=== PATIENT | female | born 1990 | race Caucasian/White ===

== ENCOUNTER 2017-08-17 18:04 | Emergency (ER) | payer OTHER ==
[~2017-08-17] VITALS: Ht 160 cm; Wt 68.0 kg
[~2017-08-17 18:04] MED LIST: IRON18 MG PO; LOMOTIL TABLET1 EACH PO; POTASSIUM CHLO20 ME1 PO
[2017-08-17] MEDS ORDERED: PAXIL20 MG PO (18:34)
== END 2017-08-17 20:47 | disposition home or self-care (01) ==
LOC: ED 18:04
DX: R07.89 Other chest pain (principal); Z87.891 Personal history of nicotine dependence; Z79.899 Other long term (current) drug therapy
CPT/HCPCS: 71046; 99283

== ENCOUNTER 2019-02-10 18:34 | Emergency (ER) | payer BC ==
[~2019-02-10] VITALS: Ht 160 cm; Wt 67.1 kg
[~2019-02-10 18:34] MED LIST changes: +PAXIL20 MG PO
[2019-02-10] MEDS ORDERED: PENICILLIN V P500 MG PO (19:41)
[2019-02-10] MEDS ORDERED: HYDROCODONE-IB1 EACH PO (19:41)
[2019-02-10] MEDS ORDERED: CLINDAMYCIN HC300 MG PO (21:11)
[2019-02-10] MEDS ORDERED: PERCOCET 5-3251 EACH PO (21:11)
== END 2019-02-10 21:26 | disposition home or self-care (01) ==
LOC: ED 18:34
DX: K08.89 Other specified disorders of teeth and supporting structures (principal); Z87.891 Personal history of nicotine dependence; Z79.899 Other long term (current) drug therapy
CPT/HCPCS: 85025; 96372; 99282; J1170

== ENCOUNTER 2020-01-19 17:58 | Emergency (ER) | payer OTHER, BC ==
[~2020-01-19] VITALS: Ht 160 cm; Wt 72.6 kg
[~2020-01-19 17:58] MED LIST changes: +CLINDAMYCIN HC300 MG PO; +HYDROCODONE-IB1 EACH PO; +PENICILLIN V P500 MG PO; +PERCOCET 5-3251 EACH PO
== END 2020-01-19 21:18 | disposition home or self-care (01) ==
LOC: ED 17:58
DX: S29.012A Strain of muscle and tendon of back wall of thorax, initial encounter (principal); S76.012A Strain of muscle, fascia and tendon of left hip, initial encounter; Z87.891 Personal history of nicotine dependence; V89.2XXA Person injured in unspecified motor-vehicle accident, traffic, initial encounter
CPT/HCPCS: 71045; 72128; 73502; 84703; 99284-25

== ENCOUNTER 2022-02-23 20:43 | Emergency (ER) | payer OTHER ==
[~2022-02-23] VITALS: Ht 160 cm; Wt 72.6 kg
[2022-02-23] MEDS ORDERED: SERTRALINE HCL100 MG (20:55)
[2022-02-23] MEDS ORDERED: CRUTCHES XX (21:28)
== END 2022-02-23 22:06 | disposition home or self-care (01) ==
LOC: ED 20:43
DX: S93.401A Sprain of unspecified ligament of right ankle, initial encounter (principal); X50.9XXA Other and unspecified overexertion or strenuous movements or postures, initial encounter; Y99.0 Civilian activity done for income or pay; Z87.891 Personal history of nicotine dependence; Z79.899 Other long term (current) drug therapy
CPT/HCPCS: 73610; 99283-25

== ENCOUNTER 2024-11-14 17:24 | Inpatient (IN) | payer OTHER ==
[~2024-11-14] VITALS: Ht 160 cm; Wt 101.2 kg
[~2024-11-14 17:24] MED LIST changes: +CRUTCHES XX; +SERTRALINE HCL100 MG
[2024-11-18] MEDS ORDERED: LACTATED RINGER'S 2,000 ML IV PRN (15:15)
[2024-11-18] MEDS ORDERED: LACTATED RINGER'S 1,000 ML IV SCH (15:15)
[2024-11-19 05:26] LABS: AMPHETAMINES, URINE NEGATIVE (NEGATIVE); BARBITURATES, URINE NEGATIVE (NEGATIVE); BENZODIAZEPINE, URINE NEGATIVE (NEGATIVE); BUPRENORPHINE, URINE NEGATIVE (NEGATIVE); CANNABINOID, URINE NEGATIVE (NEGATIVE); COCAINE, URINE NEGATIVE (NEGATIVE); ECSTASY, URINE NEGATIVE (NEGATIVE); FENTANYL, URINE NEGATIVE (NEGATIVE); METHADONE, URINE NEGATIVE (NEGATIVE); OPIATES, URINE NEGATIVE (NEGATIVE); OXYCODONE, URINE NEGATIVE (NEGATIVE); PHENCYCLIDINE, URINE NEGATIVE (NEGATIVE)
[2024-11-19 05:39] LABS: HEMATOCRIT 32.6 % (34.1-44.9); HEMOGLOBIN 10.7 g/dL (11.2-15.7); MCHC 32.8 g/dL (32.2-35.5); MCV 82.3 fL (79.4-94.8); RBC 3.96 M/uL (3.93-5.22)
[2024-11-19 06:13] VITALS: BP 149/92
[2024-11-19 06:16] LABS: ABO O; ANTIBODY SCREEN NEGATIVE; RH POSITIVE
[2024-11-19] MEDS ORDERED: CEFAZOLIN SODIUM 2 GM/20 ML SYR IV SCH (07:00)
[2024-11-19] MEDS ORDERED: SOD+POT BICARB/CITRIC ACID 2 EA TABLET.EFF PO SCH (07:00)
[2024-11-19] MEDS ORDERED: MORPHINE SULFATE 1 MG/ML VIAL ONE (07:12)
[2024-11-19] MEDS ORDERED: fentaNYL citrate 100 MCG/2 ML VIAL ONE (07:12)
[2024-11-19] MEDS ORDERED: BUPIVACAINE 0.75% IN DEXTROSE 2 ML AMP ONE (07:12)
[2024-11-19] MEDS ORDERED: OXYTOCIN 10 UNITS/ML VIAL ONE (07:12)
[2024-11-19] MEDS ORDERED: ondansetron HCL 4 MG/2 ML VIAL ONE (07:12)
[2024-11-19] MEDS ORDERED: LIDOCAINE HCL 2% 5 ML SDV ONE (07:18)
[2024-11-19] MEDS ORDERED: PHENYLEPHRINE HCL 10 MG/ML VIAL ONE (07:48)
[2024-11-19 07:54] LABS: ALBUMIN 2.2 g/dL (3.4-5.0); ALBUMIN/GLOBULIN RATIO 0.49 (1.1-2.4); BILIRUBIN, TOTAL 0.2 mg/dL (0.2-1.0); BUN/CREATININE RATIO 13.15 (6.0-28.6); CALCIUM 9.1 mg/dL (8.5-10.1); CREATININE, SERUM 0.76 mg/dL (0.55-1.02); PROTEIN, TOTAL 6.7 g/dL (6.4-8.2)
[2024-11-19 08:05] LABS: CREATININE, RANDOM URINE 195.42 mg/dL (NOT ESTABLISHED); PROTEIN/CREATININE RATIO 0.5 mg/mg (0.010-0.107)
[2024-11-19] MEDS ORDERED: LACTATED RINGER'S 1,000 ML IV ONE (08:08)
[2024-11-19] MEDS ORDERED: diphenhydrAMINE HCL 50 MG/ML VIAL ONE (08:26)
[2024-11-19] MEDS ORDERED: DEXAMETHASONE SOD PHOS 4 MG/ML VIAL ONE (08:26)
[2024-11-19] MEDS ORDERED: diphenhydrAMINE HCL 50 MG/ML VIAL IV PRN (08:30)
[2024-11-19] MEDS ORDERED: PROCHLORPERAZINE EDISYLATE 10 MG/2 ML VIAL IV PRN ×2 (08:30→09:00)
[2024-11-19] MEDS ORDERED: NALOXONE HCL 0.4 MG SYR IV PRN (08:30)
[2024-11-19] MEDS ORDERED: HYDROmorphone HCL 1 MG/ML SYR IV PRN (08:30)
[2024-11-19] MEDS ORDERED: ondansetron HCL 4 MG/2 ML VIAL IV PRN ×2 (08:30→09:00)
[2024-11-19] MEDS ORDERED: KETOROLAC TROMETHAMINE 30 MG/ML VIAL IV PRN (08:30)
[2024-11-19] MEDS ORDERED: SODIUM CHLORIDE 0.9% 20 ML IV ONE (08:34)
[2024-11-19] MEDS ORDERED: Ropivacaine HCl 0.5% 30 ML VIAL ONE (08:34)
[2024-11-19] MEDS ORDERED: SENNOSIDES/DOCUSATE 1 EA TAB PO SCH (09:00)
[2024-11-19] MEDS ORDERED: bisacodyL 10 MG SUPP PR PRN (09:00)
[2024-11-19] MEDS ORDERED: HYDROCODONE/ACETA 5/325 TAB PO PRN (09:00)
[2024-11-19] MEDS ORDERED: LIDOCAINE 2% VISCOUS 6 ML SYR TOP ONE (09:00)
[2024-11-19] MEDS ORDERED: OXYTOCIN/0.9 % SODIUM CHLORIDE 500 ML IV SCH (09:00)
[2024-11-19] MEDS ORDERED: METOCLOPRAMIDE HCL 10 MG/2 ML SDV IV PRN (09:00)
[2024-11-19] MEDS ORDERED: PROMETHAZINE HCL 25 MG TAB PO PRN (09:00)
[2024-11-19] MEDS ORDERED: PROMETHAZINE HCL 25 MG SUPP PR PRN (09:00)
[2024-11-19] MEDS ORDERED: LACTATED RINGER'S 1,000 ML IV SCH (09:02)
--- NOTE | 2024-11-19 09:13 | NUR ---
11/19/24 0913 Tamera Ruiz 0904-PATIENT ARRIVED TO RECOVERY ROOM 106 AWAKE DENIES PAIN OR NAUSEA. LEFT HAND IV INFUSING WITH LR 20 PITOCIN CDI. RIGHT HAND IV SALINE LOCKED CDI. MOM HOLDING BABY. SR HR 80'S. 0910-SPINAL LEVEL T10. PATIENT FEEDING BOTH BABIES TO BREASTS. FBC RN AT BEDSIDE ASSISTING. KILLIAN CATHETER DRAINING YELLOW URINE. FUNDUS 1 BELOW UMBILICUS LIGHT RUBRA DRAINAGE FIRM.
[2024-11-19 09:32] VITALS: BP 120/58
[2024-11-19 10:09] LABS: HEMATOCRIT 28.3 % (34.1-44.9); HEMOGLOBIN 9.1 g/dL (11.2-15.7); MCH 27.2 PG (25.6-32.2); MCHC 32.2 g/dL (32.2-35.5); MCV 84.7 fL (79.4-94.8); RBC 3.34 M/uL (3.93-5.22)
[2024-11-19 10:44] LABS: INR 0.94 (0.80-1.30); PROTIME 12.2 Sec (11.2-14.2)
[2024-11-19] MEDS ORDERED: SIMETHICONE 80 MG CHEW PO SCH (11:00)
[2024-11-19 13:25] LABS: HEMATOCRIT 30.9 % (34.1-44.9); HEMOGLOBIN 10.1 g/dL (11.2-15.7); MCH 26.9 PG (25.6-32.2); MCHC 32.7 g/dL (32.2-35.5); MCV 82.4 fL (79.4-94.8); RBC 3.75 M/uL (3.93-5.22)
[2024-11-19] MEDS ORDERED: KETOROLAC TROMETHAMINE 30 MG/ML VIAL IV SCH (14:00)
[2024-11-20 05:40] LABS: HEMATOCRIT 24.7 % (34.1-44.9); MCH 26.8 PG (25.6-32.2); MCHC 32.4 g/dL (32.2-35.5); MCV 82.9 fL (79.4-94.8); RBC 2.98 M/uL (3.93-5.22)
--- NOTE | 2024-11-20 06:54 | PR ---
[facility] [address] [facility] [place], [place] [address] Signed PP Progress Notes Datetime Report Generated by LOUIS: 11/20/2024 06:54 SUBJECTIVE: [id number] Pain: Within Normal Limits Nausea/Vomiting: Denies Flatus: Yes Vital Signs: [id number] EXAM: Ongoing Cardiovascular: Normal Respiratory: Normal Abdomen/Uterus: Normal Lochia: Normal Vulva/Perineum: Normal Breasts: Normal CVA Tenderness: Normal Extremities: Normal Incision: Normal Progress: Normal IMPRESSION/PLAN/PROCEDURES: [id number] Impression: Normal Progression Plan: Continue Present Management Procedures: None Progress Notes: No concerns this am. Will D/C cathter. Pt denies CP/SOB. H/H 8/24.7. Minimal lochia. Nursing going well. Signing Physician: Shital Brizuela MD Copies: ~ *Electronically Signed* 11/20/24 0654 SHITAL BRIZUELA MD PATIENT NAME: ZOHREH MCCANN PROGRESS NOTE DATE OF : [birth year] PHYSICIAN: SHITAL BRIZUELA MD RPT #: [id number] REPORT IS CONFIDENTIAL AND NOT TO BE RELEASED WITHOUT AUTHORIZATION
[2024-11-20] MEDS ORDERED: IBUPROFEN 600 MG TAB PO SCH (14:00)
[2024-11-20] MEDS ORDERED: OXYCODONE HCL 5 MG TAB PO PRN (17:15)
[2024-11-20] MEDS ORDERED: ACETAMINOPHEN 325 MG TAB PO PRN ×2 (17:15→21:45)
--- NOTE | 2024-11-21 08:54 | PR ---
[facility] [address] [facility] [place], [place] [address] Signed PP Progress Notes Datetime Report Generated by CPN: 11/21/2024 08:54 SUBJECTIVE: [id number] Pain: Within Normal Limits Nausea/Vomiting: Denies Flatus: Yes Vital Signs: [id number] Vital Signs: Reviewed; Within Normal Limits EXAM: Ongoing Cardiovascular: Normal Respiratory: Normal Abdomen/Uterus: Normal Lochia: Normal Vulva/Perineum: Not Done Breasts: Not Done CVA Tenderness: Not Done Extremities: Normal Incision: Normal Progress: Normal IMPRESSION/PLAN/PROCEDURES: [id number] Impression: Normal Progression Plan: Continue Present Management; Discharge Procedures: None Progress Notes: Recovering well. Ambulating. Nursing. Desires D/C home today. Signing Physician: Shital Brizuela MD Copies: ~ *Electronically Signed* 11/21/24 0854 SHITAL BRIZUELA MD PATIENT NAME: ZOHREH MCCANN PROGRESS NOTE DATE OF : [birth year] PHYSICIAN: SHITAL BRIZUELA MD RPT #: [id number] REPORT IS CONFIDENTIAL AND NOT TO BE RELEASED WITHOUT AUTHORIZATION
--- NOTE | 2024-11-21 09:06 | PR ---
[facility] [address] [facility] [place], [place] [address] Signed PP Progress Notes Datetime Report Generated by CPN: 11/21/2024 09:05 SUBJECTIVE: [id number] Pain: Within Normal Limits Nausea/Vomiting: Denies Flatus: Yes Vital Signs: [id number] Vital Signs: Reviewed; Within Normal Limits EXAM: Ongoing Cardiovascular: Normal Respiratory: Normal Abdomen/Uterus: Normal Lochia: Normal Vulva/Perineum: Not Done Breasts: Not Done CVA Tenderness: Not Done Extremities: Normal Incision: Normal Progress: Not Applicable IMPRESSION/PLAN/PROCEDURES: [id number] Impression: Normal Progression Plan: Continue Present Management Procedures: None Progress Notes: H/H 10.1/30.8. Ambulating. Pain well controlled. Anticipate D/C tomorrow. Signing Physician: Shital Brizuela MD Copies: ~ *Electronically Signed* 11/21/24904 SHITAL BRIZUELA MD PATIENT NAME: ZOHREH MCCANN PROGRESS NOTE DATE OF : [birth year] PHYSICIAN: SHITAL BRIZUELA MD RPT #: [id number] REPORT IS CONFIDENTIAL AND NOT TO BE RELEASED WITHOUT AUTHORIZATION
--- NOTE | 2024-11-22 20:08 | PATH ---
[facility] [address] [place], [place] [address] Signed SPECIMEN(S): A FALLOPIAN TUBES, BILATERAL SPECIMEN(S): B PLACENTA, TWIN SPECIMEN SOURCE: A. FALLOPIAN TUBES, BILATERAL B. PLACENTA, TWIN CLINICAL HISTORY: Twin delivery. Risk reduction for ovarian cancer. FINAL PATHOLOGIC DIAGNOSIS: A. Right and left fallopian tubes, bilateral salpingectomy: - Complete cross-sections of right and left fallopian tubes with fimbriated ends. - Negative for atypia and malignancy. B. Twin placenta, section delivery: - Dichorionic diamnionic twin placentas with separate placental discs, with the following features: - Twin #1: 563 gram placenta, designated by 1 clamp on the umbilical cord. - Mature third trimester villous morphology with mildly increased syncytial knotting. - Negative for villitis and infarction. - Three-vessel umbilical cord with eccentric insertion; negative for acute funisitis. - membrane with marginal insertion; negative for acute chorioamnionitis - Twin #2: 413 gram placenta, designated by 2 clamps on the umbilical cord. - Mature third trimester villous morphology with mildly increased syncytial knotting. - Negative for villitis and infarction. - Three-vessel umbilical cord with eccentric insertion; negative for acute funisitis. - membrane with marginal insertion; negative for acute chorioamnionitis. AZL MICROSCOPIC EXAMINATION: Histologic sections of all submitted blocks are examined by light microscopy. These findings, together with the gross examination, support the pathologic diagnosis. PATIENT NAME: ZOHREH MCCANN PATHOLOGY DATE OF : [birth year] REPORT #: [id number] PHYSICIAN: DARIUS PATHOLOGY PCP: IAN GAINES REPORT IS CONFIDENTIAL AND NOT TO BE RELEASED WITHOUT AUTHORIZATION [facility] [address] [place], [place] [address] Signed GROSS DESCRIPTION: A. The specimen, labeled and designated "Tito, bilateral fallopian tubes," is received in formalin and consists of two undesignated fallopian tubes. Both show fimbria and violaceus and smooth serosa. The first tube measures 7.7 x 1.1 cm. The second fallopian tube measures 9.5 x 1.1 cm. Sectioning through both fallopian tubes is grossly unremarkable. Cassette Summary: (A1-A2) first fallopian tube, group sales representative sections (A3) second fallopian tube, group sales representative sections B. The specimen, labeled and designated "Tito, twin placenta," is received fresh and consists of a twin placenta with separate placental discs, the following parameters: Twin 1 Designation: One umbilical cord clamp per the requisition. Umbilical cord: Insertion eccentric, measurement 38 x 1.3 cm; trivascular. Cord coiling index (per 10 cm): One. Membranes: Insertion site: Marginal, tavarez/translucent, intact. Other: Not grossly identified. Chorionic Plate: Normal radiating vascular pattern, blue-purple, plaques/cyst/thrombus. Lesions: Not grossly identified; Other: Not grossly identified. Maternal Surface: Normal cotyledons, intact. Lesions: Not grossly identified. Measurement: 25 x 18.2 x 1.2 cm. Weight (trimmed): 563 grams Cut Surface: Maroon and spongy. Lesions: Not grossly identified. Basal plate fibrin 0.1 cm in thickness. Other Findings: Not grossly identified. Twin 2 Designation: With two umbilical cord clamps per the requisition. Umbilical cord: Insertion eccentric, measurement 30 x 1.5 cm; trivascular. Cord coiling index (per 10 cm): Five. Lesions: Not grossly identified. Membranes: Insertion site: Marginal, tavarez/translucent, Intact. Other: Not grossly identified. Chorionic Plate: Normal radiating vascular pattern, blue-purple, plaques/cyst/thrombus. Lesions: Not grossly identified; Other: Not grossly identified. Maternal Surface: Normal cotyledons, intact. Lesions: Not grossly identified. Measurement: 23 x 18 x 1.2 cm. Weight (trimmed): 413 grams Cut Surface: Maroon and spongy. Lesions: Not grossly identified. Basal plate PATIENT NAME: ZOHREH MCCANN PATHOLOGY DATE OF : [birth year] REPORT #: [id number] PHYSICIAN: DARIUS GONZALES PCP: IAN GAINES REPORT IS CONFIDENTIAL AND NOT TO BE RELEASED WITHOUT AUTHORIZATION [address] [address] Signed fibrin 0.1 cm in thickness. Other Findings: Not grossly identified. Dividing membranes: There is no grossly visible insertion site on the surface of either placental disc. There membranes of the two placentas are focally adherent to each other, forming a dividing membrane. This area is white, thick, translucent, and intact. Cassette Summary: (B1) Twin 1, umbilical cord and membranes (B2) Twin 1, placenta parenchyma (B3) Twin 1, placenta parenchyma (B4) Twin 1, placenta parenchyma (B5) Twin 2, umbilical cord and membranes (B6) Twin 2, placental parenchyma (B7) Twin 2, placental parenchyma (B8) Twin 2, placental parenchyma (B9) Dividing membranes. JS (under the direct supervision of a pathologist) The Gross Description was prepared using a voice recognition system. The report was reviewed for accuracy; however, sound-alike word errors, addition and/or deletions may occur. If there are any questions about this report, please contact Client Services. ADDITIONAL NOTES: Immunohistochemical and/or in situ hybridization studies if performed in this case included appropriate positive controls that reacted as expected. This test was developed and its performance characteristics determined by [facility]. It has not been cleared or approved by the U.S. Food and Drug Administration. The FDA has determined that such clearance or approval is not necessary. This test is used for clinical purposes. It should not be regarded as investigational or for research. [facility] is certified under the Clinical Laboratory Improvement Amendments of 1988 (CLIA) as qualified to perform high complexity clinical laboratory testing. PERFORMING LABORATORY: Technical component was performed by [facility], [address] [place] [id number] (CLIA# [id number]). Professional interpretation was performed by [facility], [address] [place] [phone] (CLIA#: [id number]). PATIENT NAME: ZOHREH MCCANN PATHOLOGY DATE OF : [birth year] REPORT #: [id number] PHYSICIAN: DARIUS GONZALES PCP: IAN GAINES REPORT IS CONFIDENTIAL AND NOT TO BE RELEASED WITHOUT AUTHORIZATION [address] [address] Signed Diagnostician: Kalyani Alatorre MD Pathologist Electronically Signed 11/22/2024 Copies: ~ PATIENT NAME: ZOHREH MCCANN [place] PATHOLOGY DATE OF : [birth year] REPORT #: [id number] PHYSICIAN: DARIUS PATHOLOGY PCP: IAN GAINES REPORT IS CONFIDENTIAL AND NOT TO BE RELEASED WITHOUT AUTHORIZATION
== END 2024-11-21 11:25 | disposition home or self-care (01) | DRG 784 ==
LOC: FBC 11-19 04:51
PROVIDERS: ADMIT Obstetrics & Gynecology; ATTEND Obstetrics & Gynecology
PROC: 0UT70ZZ Resection of Bilateral Fallopian Tubes, Open Approach (ICD-10-PCS; 2024-11-19)
PROC: 10D00Z1 Extraction of Products of Conception, Low, Open Approach (ICD-10-PCS; principal; 2024-11-19 07:30)
DX: O32.1XX1 Maternal care for breech presentation, fetus 1 (principal); O72.1 Other immediate postpartum hemorrhage; O98.32 Other infections with a predominantly sexual mode of transmission complicating childbirth; O32.1XX2 Maternal care for breech presentation, fetus 2; O30.043 Twin pregnancy, dichorionic/diamniotic, third trimester; O14.04 Mild to moderate pre-eclampsia, complicating childbirth; Z3A.37 37 weeks gestation of pregnancy; Z37.2 Twins, both liveborn; Z87.891 Personal history of nicotine dependence; A60.00 Herpesviral infection of urogenital system, unspecified; O99.344 Other mental disorders complicating childbirth; F41.8 Other specified anxiety disorders; O24.420 Gestational diabetes mellitus in childbirth, diet controlled
CPT/HCPCS: 01961; 36415; 76942; 80053; 80307; 82565; 82570; 83030; 83615; 84156; 84550; 85027; 85384; 85610; 85730; 86850; 86900; 86901; 88305; 88307; A9270; J0690; J1100; J1200; J1885; J2003; J2274; J2371; J2405; J2590; J2790; J2795; J3010; J7121